=== PATIENT | female | born 1955 | race Caucasian/White ===

== ENCOUNTER 2018-05-25 15:30 | Emergency (ER) | payer BC ==
--- NOTE | 2018-05-25 15:47 | ED ---
Abdominal Pain/Female - HPI Summary HPI Summary: This patient is a 62 year old F presenting to [facility] with a chief complaint of lower abdominal pain since yesterday. The patient rates the pain 6/10 in severity. Patient reports fever and frequent urination yesterday. Patient denies chills and dysuria. She has a PMHx of diverticulitis and believes this is a flare-up. She is allergic to fentanyl. - History of Current Complaint Chief Complaint: EDAbdPain Stated Complaint: ABD PAIN Time Seen by Provider: 05/25/18 15:36 Hx Obtained From: Patient Onset/Duration: Sudden Onset, Lasting Days - Yesterday, Still Present Timing: Constant Severity Initially: Moderate Severity Currently: Moderate Pain Intensity: 6 Pain Scale Used: 0-10 Numeric Location: Other - Lower abdomen Radiates: Yes Radiates to: Back - Intermittently to back Associated Signs and Symptoms: Positive: Fever, Urinary Symptoms - Frequent urination yesterday. Denies dysuria., Other: - Denies chills Allergies/Adverse Reactions: Allergies Allergy/AdvReac Type Severity Reaction Status Date / Time fentanyl AdvReac Intermediate Hives Verified 05/25/18 15:53 seasonal Allergy Mild Eyes Uncoded 05/25/18 15:52 Itchy/Swollen/Red/Watery unknown pain medication Allergy Mild Rash Uncoded 05/25/18 15:52 PMH/Surg Hx/FS Hx/Imm Hx Endocrine/Hematology History: Denies: Hx Diabetes Cardiovascular History: Denies: Hx Hypertension History: Denies: Hx Renal Disease - Surgical History Surgery Procedure, Year, and Place: HYSTERECTOMY, BOWEL, STENTS IN BOTH ILIAC VEINS 25 YEARS AGO, BILATERAL HIPS, APPENDECTOMY, RIGHT KNEE Infectious Disease History: No Infectious Disease History: Denies: Traveled Outside the [place] in Last 30 Days - Family History Known Family History: Positive: Hypertension, Diabetes, Other - Cancer - Social History Lives: With Family Alcohol Use: Occasionally Substance Use Type: Reports: None Smoking Status (MU): Never Smoked Tobacco Review of Systems Positive: Fever. Negative: Chills Positive: Abdominal Pain - Lower abdominal pain Positive: frequency - frequent urination yesterday. Negative: dysuria All Other Systems Reviewed And Are Negative: Yes Physical Exam - Summary Physical Exam Summary: GENERAL: Patient is a well-developed and nourished F who is lying comfortable in the stretcher. Patient is not in any acute respiratory distress. HEAD AND FACE: Normocephalic EYES: PERRLA, EOMI x 2. EARS: Hearing grossly intact. MOUTH: Oropharynx within normal limits. NECK: Supple, trachea is midline, no adenopathy, no JVD, no carotid bruit. CHEST: Symmetric, no tenderness at palpation LUNGS: Clear to auscultation bilaterally. No wheezing or crackles. CVS: Regular rate and rhythm, S1 and S2 present, no murmurs or gallops appreciated. ABDOMEN: L side of abdomen is tender to palpation, no rebound EXTREMITIES: Full ROM in all major joints, no edema, no cyanosis or clubbing. NEURO: Alert and oriented x 3. No acute neurological deficits. Speech is normal and follows commands. SKIN: Dry and warm Triage Information Reviewed: Yes Vital Signs On Initial Exam: Initial Vitals Temp Pulse Resp BP Pulse Ox 98.1 F 90 16 154/78 99 05/25/18 15:32 05/25/18 15:32 05/25/18 15:32 05/25/18 15:32 05/25/18 15:32 Vital Signs Reviewed: Yes Diagnostics - Vital Signs Vital Signs Temp Pulse Resp BP Pulse Ox 05/25/18 15:32 98.1 F 90 16 154/78 99 - Laboratory Result Diagrams: 05/25/18 16:49 05/25/18 16:49 Lab Statement: Any lab studies that have been ordered have been reviewed, and results considered in the medical decision making process. - CT Abdomen/Pelvis CT CT Interpretation Completed By: Radiologist - 18:54. There is colonic diverticulosis with wall thickening and fat stranding in the descending colon consistent with acute diverticulitis without visible abscess or signs of gross perforation. ED Physician has reviewed this imaging report. Re-Evaluation - Re-Evaluation 1 Re-Evaluation Time: 18:58 Abdominal Pain Fem Course/Dx - Course Course Of Treatment: This patient is a 62 year old F presenting to [facility] with a chief complaint of lower abdominal pain since yesterday. Labs were remarkable for white blood count of 12.8. Elevated CRP at 93. UA is a contaminated sample but does have findings suggesting a UTI. Abdomen/pelvis CT showed diverticulitis. I will give her ciprofloxacin and tell her to follow up with her doctor. - Diagnoses Provider Diagnoses: Diverticulitis Discharge - Sign-Out/Discharge Documenting (check all that apply): Patient Departure - D/C - Discharge Plan Condition: Stable Disposition: HOME Patient Education Materials: Diverticulitis (ED) Referrals: aMrti Mari DO [Primary Care Provider] - - Attestation Statements Document Initiated by Scribe: Yes Documenting Scribe: Kaden Pinedo Provider For Whom Scribe is Documenting (Include Credential): Jeimy Bowers MD Scribe Attestation: Kaden Mcknight, scribed for Jeimy Bowers MD on 05/25/18 at 1903.
[2018-05-25] MEDS ORDERED: NS 0.9% 1000 ML* 1,000 ML IV ONE (16:15)
[2018-05-25] MEDS ORDERED: Ondansetron INJ* 2 MG/ML VIAL IV ONE (16:15)
[2018-05-25] MEDS ORDERED: Ketorolac INJ* 15 MG/ML 1 ML VIAL IV ONE (16:15)
--- OUTSIDE RECORDS SUMMARY | 2018-05-25 16:16 | XMS REPORT ---
:1955 External Reference #:[id number] Author Organization [facility] Address [address] [place] [address] [place] [address] Phone [phone] Care Team Providers Name Role Phone Marti Mari DO Primary Care Physician Unavailable Payers Type Date Identification Numbers Payment Provider Subscriber Commercial Policy Number: [id number] [employer] Debby Almaraz PayID: [id number] [address] [address] [place] [address] Problems Date Description Provider Status Onset: 05/12/2018 Pelvic varices Last Anderson M.D. Active Onset: 05/12/2018 Varicose veins of lower extremity Last Anderson M.D. Active Family History Date Family Member(s) Problem(s) Comments Mother Diabetes Social History Type Date Description Comments Marital Status Occupation Currently Working Occupation [employer] Clerk Cigarette Use Never Smoked Cigarettes ETOH Use Drinks 3 Alcoholic Beverages Per Week Smoking Patient has never smoked Recreational Drug Use Denies Drug Use Daily Caffeine Consumes on average 5-10 cups of hot tea per day Exercise Type/Frequency Exercises regularly Allergies, Adverse Reactions, Alerts Date Description Reaction Status Severity Comments 05/12/2018 NKDA active Medications Medication Date Status Form Strength Qnty SIG Indications Ordering Provider Aspir-[address] 81mg 1 by Unknown 00 mouth every day Levothyroxine- Active Tablets 120mg daily Unknown Liothyronine 00 Vital Signs Date Vital Result Comment 05/12/2018 Height 64.5 inches 5'4.50" Weight 176.00 lb Heart Rate 84 /min BP Systolic Sitting 140 mmHg BP Diastolic Sitting 90 mmHg Respiratory Rate 16 /min BMI (Body Mass Index) 29.7 kg/m2 Results Description No Information Procedures Description No Information Plan of Care Future Appointment(s):05/21/2018 2:30 pm - Last Anderson M.D. at [facility]05/12/2018 - Last Anderson M.D.I83.812 Varicose veins of left lower extremity with painNew Xrays:Venography BilateralComments: The following was discussed with Mrs. Almaraz at the time of consultation:Despite prior superficial vein interventions in the lower extremities and despite stenting of the bilateral iliac veins, the patient's varicose vein disease continues to be symptomatic.Most likely she has can require further superficial varicose veins interventions in her lower extremities but it is worthwhile to investigate the pelvic and central venous system before undertaking superficial vein ablation.A tilt table pelvic andupper thigh venogram will be performed to evaluate the followin. Patency of the bilateral iliac stents placed in 1996.2. Evaluate the pelvic vein exiting the groin that appears to communicate with the enlarged, right bigger than left, superficial varicose veins running down the bilateral lateral thighs. If these veins can be identified on venography they potentially can be embolized at their origin.3. Document possible reflux at the left great saphenous vein which appears to be communicating with a bulging varicose vein overlying the posterior lateral left knee.4. Identify any other refluxingpelvic veins that may be contributing to the patient's pelvic and lower extremity pain.Following a diagnostic tilt table venogram the patient may return to interventional radiology for embolization of pathologically refluxing veins located in the pelvis and upper thighs.I83.811 Varicose veins of right lower extremity with painI86.2 Pelvic varices
[2018-05-25 17:03] LABS: ABS Basophils 0.1 10^3/ul (0-0.2); ABS Eosinophils 0 10^3/ul (0-0.6); ABS Lymphocytes 1.3 10^3/ul (1.0-4.8); ABS Monocytes 1.2 10^3/ul (0-0.8); ABS Neutrophils 10.3 10^3/ul (1.5-7.7); ABS Nucleated RBC 0 10^3/ul; Eosinophil % 0.1 % (0-6); Hematocrit 37 % (35-47); Hemoglobin 12.3 g/dl (12.0-16.0); Lymphocyte % 10.2 % (25-47); Mean Corpuscular HGB Conc 33 g/dl (31-36); Mean Corpuscular Hemoglobin 30 pg (27-31); Mean Corpuscular Volume 90 fL (80-97); Mean Platelet Volume 8.1 um3 (7.4-10.4); Nucleated Red Blood Cells % 0; Platelet Count 250 10^3/ul (150-450); Red Cell Distribution Width 16 % (10.5-15); White Blood Count 12.8 10^3/ul (3.5-10.8)
[2018-05-25 17:27] LABS: EGFR Non-African American 88.9 (>60)
[2018-05-25 17:51] LABS: Urine Appearance Clear; Urine Blood 1+ (Negative); Urine Color Yellow; Urine Ketones Negative (Negative); Urine Protein Negative (Negative); Urine Red Blood Cell Absent (Absent); Urine Specific Gravity 1.006 (1.010-1.030); Urine Urobilinogen Negative (Negative); Urine White Blood Cell 2+(11-20/hpf) (Absent)
[2018-05-25] MEDS ORDERED: Iohexol 300* (CONTRAST) 10 ML SDV IV ONE (18:11)
--- NOTE | 2018-05-25 18:54 | RAD ---
EXAM: CT Abdomen and Pelvis With Intravenous Contrast CLINICAL HISTORY: 62 years old, female; Pain; Abdominal pain; Localized; Left lower quadrant (llq); Prior surgery; Additional info: Left sided abdominl pain TECHNIQUE: Axial computed tomography images of the abdomen and pelvis with intravenous contrast. All CT scans at this facility use at least one of these dose optimization techniques: automated exposure control; mA and/or kV adjustment per patient size (includes targeted exams where dose is matched to clinical indication); or iterative reconstruction. Coronal and sagittal reformatted images were created and reviewed. CONTRAST: 100 mL of OMNIPAQUE 300 administered intravenously. COMPARISON: A/P WWO CT ABD/PEL W/WO 03/10/2018 12:59 PM FINDINGS: Lung bases: There is bibasilar atelectatic change or scarring. There is a calcified granuloma in the right lower lobe base. Stable subcentimeter low attenuation lesion in the right lobe of the liver. ABDOMEN: Liver: See above. Gallbladder and bile ducts: Unremarkable. No calcified stones. No ductal dilation. Pancreas: Unremarkable. No mass. No ductal dilation. Spleen: Unremarkable. No splenomegaly. Adrenals: Unremarkable. No mass. Kidneys and ureters: Unremarkable. No solid mass. No hydronephrosis. Stomach and bowel: There is colonic diverticulosis with wall thickening and fat stranding in the descending colon consistent with acute diverticulitis without visible abscess or signs of gross perforation. Stable postoperative changes at the level of the descending colon. No obstruction. PELVIS: Appendix: The appendix is not visible. Bladder: Unremarkable. No mass. Reproductive: Stable postoperative changes of hysterectomy. ABDOMEN and PELVIS: Intraperitoneal space: Unremarkable. No free air. No significant fluid collection. Bones/joints: Stable postoperative changes of bilateral total hip arthroplasty. Stable diffuse osteopenia and degenerative changes of the spine. No acute fracture. No dislocation. Soft tissues: Unremarkable. Vasculature: Stable bilateral iliac venous stents Stable atherosclerotic aortic calcifications. Stable likely calcified phleboliths in the pelvis. No abdominal aortic aneurysm. Lymph nodes: Unremarkable. No enlarged lymph nodes. IMPRESSION: There is colonic diverticulosis with wall thickening and fat stranding in the descending colon consistent with acute diverticulitis without visible abscess or signs of gross perforation.
[2018-05-25] MEDS ORDERED: metroNIDAZOLE TAB* 250 MG PO ONE (19:00)
[2018-05-25] MEDS ORDERED: Ciprofloxacin TAB* 500 MG PO ONE (19:00)
[2018-05-25 19:22] VITALS: BP 135/78
--- NOTE | 2018-05-27 07:11 | PN ---
Progress Note - Progress Note Date of Service: 05/27/18 Note: patient urine culture grew E coli 50-75,000. patient place on cipro for diverticulitis which should cover for e coli. will wait for sensitivities.
== END 2018-05-25 19:21 | disposition home or self-care (01) ==
LOC: ED 15:30
DX: K57.92 Diverticulitis of intestine, part unspecified, without perforation or abscess without bleeding (principal); R10.30 Lower abdominal pain, unspecified
CPT/HCPCS: 36415; 74177; 80053; 81003; 81015; 83605; 83690; 85025; 86140; 87040; 87077; 87086; 87186; 96374; 96375; 99282; A9270-GY; J1885; J2405; Q9967

== ENCOUNTER 2023-06-29 15:40 | Inpatient (IN) ==
[2023-06-29 16:48] LABS: ABS Basophils 0.1 10^3/uL (0.0-0.1); ABS Eosinophils 0.1 10^3/uL (0.0-0.5); ABS Lymphocytes 1.8 10^3/uL (1.0-4.8); ABS Monocytes 0.9 10^3/uL (0.0-0.9); ABS Neutrophils 7.3 10^3/uL (1.5-7.6); Eosinophil % 1.2 %; Hematocrit 30.2 % (35-45); Hemoglobin 10.4 g/dL (11.5-14.3); Lymphocyte % 17.7 %; Mean Corpuscular Hemoglobin 31.8 pg (27-33); Mean Corpuscular Hgb Conc 34.3 g/dL (31-36); Mean Corpuscular Volume 92.6 fL (80-97); Platelet Count 267 10^3/uL (150-450); Red Blood Count 3.27 10^6/uL (3.63-4.92); Red Cell Distribution Width 13.8 % (12-17); White Blood Count 10.2 10^3/uL (3.8-11.8)
[2023-06-29] MEDS: NS 0.9% 1000 ml BAG 1,000 ML IV SCH (16:56)
[2023-06-29 16:58] LABS: Albumin 3.5 g/dL (3.2-5.2); Calcium 8.7 mg/dL (8.6-10.3); Potassium 3.9 mmol/L (3.5-5.0); Total Bilirubin 0.4 mg/dL (0.2-1.0)
[2023-06-29 17:04] LABS: Albumin/Globulin Ratio 1.3 (1-3); Creatinine, Serum 0.6 mg/dL (0.51-0.95); Globulin 2.6 g/dL (2-4); Total Protein 6.1 g/dL (6.4-8.9); eGFR CKD-EPI 97.1 (>60)
[2023-06-29] MEDS ORDERED: Ondansetron 4 mg VIAL 2 MG/ML 2 ml VIAL IV PRN (17:21)
[2023-06-29] MEDS ORDERED: Zosyn per Pharmacy NOTE FOLLOW UP SCH (20:00)
[2023-06-29] MEDS: ZOSYN 3.375 GM Q8H per EXTENDED INFUSION IV SCH (20:52)
[2023-06-29] MEDS: Enoxaparin 40 MG/0.4 ML SYR SUBCUT SCH (20:52)
[2023-06-30] MEDS: ZOSYN 3.375 GM Q8H per EXTENDED INFUSION IV SCH ×3 (04:12→21:13)
[2023-06-30] MEDS: NS 0.9% 1000 ml BAG 1,000 ML IV SCH (04:14)
[2023-06-30 06:24] LABS: ABS Basophils 0.1 10^3/uL (0.0-0.1); ABS Eosinophils 0.2 10^3/uL (0.0-0.5); ABS Lymphocytes 1.8 10^3/uL (1.0-4.8); ABS Monocytes 0.7 10^3/uL (0.0-0.9); ABS Neutrophils 4.9 10^3/uL (1.5-7.6); Eosinophil % 2.3 %; Hematocrit 28.6 % (35-45); Hemoglobin 9.9 g/dL (11.5-14.3); Lymphocyte % 23.4 %; Mean Corpuscular Hgb Conc 34.8 g/dL (31-36); Mean Corpuscular Volume 92.1 fL (80-97); Platelet Count 258 10^3/uL (150-450); Red Cell Distribution Width 13.9 % (12-17); White Blood Count 7.6 10^3/uL (3.8-11.8)
[2023-06-30 06:35] LABS: Calcium 8.3 mg/dL (8.6-10.3); Creatinine, Serum 0.62 mg/dL (0.51-0.95); Potassium 3.7 mmol/L (3.5-5.0); eGFR CKD-EPI 96.3 (>60)
[2023-06-30] MEDS ORDERED: Influenza vaccine *QUAD* *2023-24* 0.5 ML SYRINGE IM ONE (09:00)
[2023-06-30] MEDS ORDERED: D5W 1/2 NS KCl 20 meq 1000 ml 1,000 ML IV SCH (15:00)
[2023-06-30] MEDS: D5W 1/2 NS 1000 ml BAG 1,000 ML IV SCH (18:45)
[2023-06-30] MEDS: Enoxaparin 40 MG/0.4 ML SYR SUBCUT SCH (21:16)
[2023-07-01] MEDS: D5W 1/2 NS 1000 ml BAG 1,000 ML IV SCH (03:28)
[2023-07-01] MEDS: ZOSYN 3.375 GM Q8H per EXTENDED INFUSION IV SCH ×2 (05:50→12:24)
[2023-07-01 06:44] LABS: ABS Eosinophils 0.2 10^3/uL (0.0-0.5); ABS Lymphocytes 1.3 10^3/uL (1.0-4.8); ABS Monocytes 0.5 10^3/uL (0.0-0.9); ABS Neutrophils 3.5 10^3/uL (1.5-7.6); Eosinophil % 3.4 %; Mean Corpuscular Hemoglobin 32.2 pg (27-33); Mean Corpuscular Hgb Conc 34.5 g/dL (31-36); Mean Corpuscular Volume 93.3 fL (80-97); Mean Platelet Volume 8.3 fL (7.5-11.2); Nucleated Red Blood Cells % 0.1 %/100WBC (0.0-0.8); Platelet Count 284 10^3/uL (150-450); Red Blood Count 3.11 10^6/uL (3.63-4.92); White Blood Count 5.5 10^3/uL (3.8-11.8)
[2023-07-01 06:54] LABS: Calcium 8.4 mg/dL (8.6-10.3); Creatinine, Serum 0.64 mg/dL (0.51-0.95); Potassium 3.6 mmol/L (3.5-5.0); eGFR CKD-EPI 95.6 (>60)
[2023-07-01 07:15] LABS: Ferritin 121.3 ng/mL (11-307)
[2023-07-01 10:23] VITALS: BP 139/67
== END 2023-07-01 17:00 | disposition home or self-care (01) | DRG 392 ==
LOC: ED 15:40 → SUATTDRO 16:09 → EDHOLD 16:09 → MEDTELE 17:41
PROVIDERS: ADMIT Internal Medicine; ATTEND Student in an Organized Health Care Education/Training Program